=== PATIENT | male | born 1955 | race Caucasian/White ===

== ENCOUNTER 2022-07-09 08:09 | Day surgery (SDC) | payer MEDICARE ==
[~2022-07-09] VITALS: Ht 177.8 cm; Wt 83.9 kg
[~2022-07-09 08:09] MED LIST: DIOVAN40 MG PO; LIPITOR20 M1 PO; LOSARTAN POTASS50 MG PO; NORVASC5 M1 PO; SYNTHROID25 MCG PO
[2022-07-09 11:21] VITALS: BP 112/63
== END 2022-07-09 11:15 | disposition home or self-care (01) ==
LOC: ENDO 08:09
PROVIDERS: ATTEND Surgery
PROC: 0DJD8ZZ Inspection of Lower Intestinal Tract, Via Natural or Artificial Opening Endoscopic (ICD-10-PCS; principal; 2022-07-09)
DX: Z12.11 Encounter for screening for malignant neoplasm of colon (principal); K64.8 Other hemorrhoids; Z86.010 Personal history of colon polyps